=== PATIENT | female | born 1980 | race Caucasian/White ===

== ENCOUNTER → 2017-03-03 | Outpatient (CLI) | payer BC ==
[2017-03-03 11:54] LABS: BUN/CREATININE RATIO 24 (0-10)
== END ==
LOC: LAB 10:27
PROVIDERS: Internal Medicine
DX: E03.9 Hypothyroidism, unspecified (principal); L68.0 Hirsutism; E22.1 Hyperprolactinemia; E25.0 Congenital adrenogenital disorders associated with enzyme deficiency
CPT/HCPCS: 36415; 80053; 82627; 83498; 84146; 84402; 84403; 84439; 84443